=== PATIENT | female | born 1955 | race Caucasian/White ===

== ENCOUNTER 2025-03-20 18:25 | Inpatient (IN) | payer OTHER ==
[~2025-03-20] VITALS: Ht 167.6 cm; Wt 143.6 kg
[2025-03-20] VITALS (14 sets, daily range): BP systolic 128–196; BP diastolic 50–82; PULSE 57–87; RESP 9–19; TEMP 97.7–98.6; O2SAT 92–96
[~2025-03-20 18:25] MED LIST: FLUT1INH6 INH; POTA-180 PO; TRIA0.5O2 TOP
--- NOTE | 2025-03-20 18:46 | ECG ---
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
[2025-03-20] MEDS: HEPARIN SODIUM (PORCINE) 5000 UNITS/ML 1ML VIAL IV ONE ×2 (18:49→18:52)
--- NOTE | 2025-03-20 18:52 | ED.PDOC ---
HPI Comments 69 y/o obese F is BIBA for c/c chest pain. Patient reports 1x day history of substernal chest pain, that radiates to her back and bilateral shoulders. Unprovoked, atraumatic, and sudden onset, while at rest. Pain is a 10/10 in severity and squeezing and constant in quality. Endorsement of vomiting 1x after eating a meal, earlier; vomitus was stated to have been brown with food content. Significant history of OR, TAVR, hear catheterization, asthma, COPD, and furosemide use. Denies any abdominal pain, shortness of breath, palpitations, or further associated symptoms. Vital signs stable and within normal limits, with exception of SpO2 of 89% RA, respiratory rate in the 20's, blood pressure in the 140's systolically, and a blood glucose of 108. Time Seen by MD: 18:30 Reviewed Notes: Nurses Notes, Medical Imaging Technician Notes, Medications, Allergies Allergies: Coded Allergies: NO KNOWN ALLERGIES (Unverified , 03/20/25) Information Source: Patient, Emergency Med Personnel Mode of Arrival: EMS Severity: Moderate Timing: Hours Duration: Since onset Prehospital treatment: 12 Lead EKG, Accucheck, ASA (324mg), Loan Secretary, NTG (0.4mg) Location: Substernal Radiation: No Radiation Past Medical History PAST MEDICAL HISTORY: Asthma, COPD, OR Past Medical History (Other): Furesomide use Surgical History (Other): TAVR heart catherization All Other Systems: Reviewed and Negative (Comprehensive systems review obtained and negative except for what is stated in the HPI.) Physical Exam General Appearance: Moderate Distress, Obese HEENT: Normal ENT Inspection, Pharynx Normal, TMs Normal Neck: Full Range of Motion, Non-Tender, Normal, Normal Inspection Respiratory: Chest Non-Tender, Lungs Clear, No Accessory Muscle Use, No Respiratory Distress, Normal Breath Sounds Cardiovascular: No Edema, No JVD, No Murmur, No Gallop, Normal Peripheral Pulses, Regular Rate/Rhythm Breast Exam: Deferred Gastrointestinal: No Organomegaly, Non Tender, No Pulsatile Mass, Normal Bowel Sounds, Soft Genitalia: Deferred Pelvic: Deferred Rectal: Deferred Extremities: No calf tenderness, Normal capillary refill, Normal inspection, Normal range of motion, Non-tender, No pedal edema Musculoskeletal : Apperance: Normal Neurologic: Alert, docking saw operator II-XII nml as Tested, No Motor Deficits, Normal Affect, Normal Mood, No Sensory Deficits Cerebellar Function: Normal Reflexes: Normal Skin: Dry, Normal Color, Warm Lymphatic: No Adenopathy EKG EKG : Pulse Rate (adult): 51 [place]: LAD Cardiac Rhythm: Afib Block: None Hypertrophy: None ST: New, Infarct Comments leads II-IV Was a procedure done? Was a procedure done?: No CP Differential Dx Differential Diagnosis: N/A Differential Diagnosis: N/A Differential Diagnosis: Angina, Chest Wall Pain, Esophageal reflux/spasm, Gastritis, Myocardial Infarction, Pericarditis, Pulmonary Embolus X-Ray, Labs, Meds, VS Vital Signs Date Time Temp Pulse Resp B/P (MAP) Pulse Ox O2 Delivery O2 Flow Rate FiO2 03/20/25 19:01 67 12 127/77 03/20/25 18:52 51 03/20/25 18:45 67 12 96 Nasal Cannula* 2 28 03/20/25 18:45 67 12 127/77 (94) 96 03/20/25 18:30 67 03/20/25 18:30 99.2 62 20 141/7 (51) 96 99.2 03/20/25 18:29 51 Lab Test 03/20/25 18:46 Range/Units White Blood Count 7.8 4.4-10.8 10^3/uL Red Blood Count 4.73 4.0-5.20 10^6/uL Hemoglobin 13.8 12.2-16.2 g/dL Hematocrit 41.2 36.0-46.0 % Mean Corpuscular Volume 87.1 80.0-100.0 fL Mean Corpuscular Hemoglobin 29.2 28.0-32.0 pg Mean Corpuscular Hemoglobin Concent 33.5 32.0-36.0 g/dL Red Cell Distribution Width 14.7 H 11.8-14.3 % Platelet Count 205 140-450 10^3/uL Mean Platelet Volume 9.1 6.9-10.8 fL Neutrophils (%) (Auto) 61.5 37.0-80.0 % Lymphocytes (%) (Auto) 26.0 10.0-50.0 % Monocytes (%) (Auto) 9.5 0.0-12.0 % Eosinophils (%) (Auto) 2.2 0.0-7.0 % Basophils (%) (Auto) 0.8 0.0-2.0 % Neutrophils # (Auto) 4.8 1.6-8.6 10 ^3/uL Lymphocytes # (Auto) 2.0 0.4-5.4 10 ^3/uL Monocytes # (Auto) 0.7 0-1.3 10 ^3/uL Eosinophils # (Auto) 0.2 0-0.8 10 ^3/uL Basophils # (Auto) 0.1 0-0.2 10 ^3/uL Nucleated Red Blood Cells 0.1 % Prothrombin Time 10.4 9.3-11.8 sec Prothrombin Time INR 0.98 0.9-1.15 Activated Partial Thromboplast Time 26.8 24.5-34.5 SEC Sodium Level 140 136-145 mmol/L Potassium Level 4.1 3.5-5.1 mmol/L Chloride Level 105 98-107 mmol/L Carbon Dioxide Level 24 20-31 mmol/L Anion Gap 11 5-15 Blood Urea Nitrogen 20 9-23 mg/dL Creatinine 1.05 H 0.550-1.02 mg/dL Glomerular Filtration Rate Calc 58 >90 mL/min BUN/Creatinine Ratio 19.0 10.0-20.0 Serum Glucose 112 H 74-106 mg/dL Hemoglobin A1c 5.5 <5.7 % A1C Calcium Level 10.3 8.7-10.4 mg/dL Magnesium Level 1.9 1.6-2.6 mg/dL Total Bilirubin 0.3 0.2-1.0 mg/dL Aspartate Amino Transferase (AST) 28 13-40 U/L Alanine Aminotransferase (ALT) 28 7-40 U/L Alkaline Phosphatase 85 46-116 U/L Troponin I High Sensitivity 748 *H </=34 ng/L B-Type Natriuretic Peptide 52.53 0-100 pg/mL Total Protein 6.6 5.7-8.2 g/dL Albumin 4.4 3.2-4.8 g/dL Triglycerides Level 159 H < 150 mg/dL Cholesterol Level 160 < 200 mg/dL LDL Cholesterol 87 < 100 mg/dL HDL Cholesterol 52 40-59 mg/dL Thyroid Stimulating Hormone (TSH) 1.51 0.55-4.78 uIU/mL Current Medications Medications (Trade) Dose Ordered Sig/Connie Route Start Time Stop Time Status Last Admin Morphine Sulfate 2 mg ONCE ONCE IV 03/20/25 18:45 03/20/25 18:46 DC 03/20/25 19:01 Clopidogrel Bisulfate (Plavix) 300 mg ONCE ONCE PO 03/20/25 18:45 03/20/25 18:46 DC 03/20/25 19:00 Time of 1ST Reevaluation: 19:00 Reevaluation 1ST: Unchanged Patient Education/Counseling: Diagnosis, Treatment, Other (need for heart catherization and hospital admission ) Family Education/Counseling: No Family Present SEPSIS Sepsis Screen Physician Orders Chest Portable (03/20/25 18:36) Loan Secretary (03/20/25 18:36) Blood Pressure (03/20/25 18:36) Pulse Oximetry (03/20/25 18:36) Sodium Chloride Lock (Saline Lock Ns) (03/20/25 22:00) Oxygen Per Hour (03/20/25 18:36) Cardiac Rehabilitation - Outpa (03/20/25 ) Discontinue All Im Injections (03/20/25 18:37) Cl Left Heart Cath (03/20/25 18:56) Echo 2d Mode Cardiac Dop (03/20/25 19:40) Electrocardigram (03/21/25 04:00) Atorvastatin (Lipitor) (03/20/25 22:00) Aspirin Tablet (03/21/25 10:00) Vital Signs Date Time Temp Pulse Resp B/P (MAP) Pulse Ox O2 Delivery O2 Flow Rate FiO2 03/20/25 19:01 67 12 127/77 03/20/25 18:52 51 03/20/25 18:45 67 12 96 Nasal Cannula* 2 28 03/20/25 18:45 67 12 127/77 (94) 96 03/20/25 18:30 67 03/20/25 18:30 99.2 62 20 141/7 (51) 96 99.2 03/20/25 18:29 51 Laboratory Tests Test 03/20/25 18:46 White Blood Count 7.8 10^3/uL (4.4-10.8) Medications Medications Dose Ordered Sig/Connie Route Start Time Stop Time Status Last Admin Dose Admin Clopidogrel Bisulfate 300 mg ONCE ONCE PO 03/20/25 18:45 03/20/25 18:46 DC 03/20/25 19:00 Eptifibatide 20 mg STK-MED ONCE IV 03/20/25 20:05 03/20/25 20:04 DC 03/20/25 20:05 Iodixanol 32,000 mg STK-MED ONCE IV 03/20/25 19:57 03/20/25 19:56 DC 03/20/25 19:57 Iodixanol 64,000 mg STK-MED ONCE IV 03/20/25 19:03 03/20/25 19:02 DC 03/20/25 19:03 Morphine Sulfate 2 mg ONCE ONCE IV 03/20/25 18:45 03/20/25 18:46 DC 03/20/25 19:01 Departure 1 Departure Time of Disposition: 19:10 Impression: Primary Impression: Acute OR Disposition: ADMITTED INPATIENT Admit to: ICU Condition: Critical Discharged With: Self Critical Care Note Critical Care Time?: Yes (35 min-critical care time only) Critical care comment: Total critical care time: Approximately 36 minutes Due to a high probability of clinically significant, life threatening deterioration, the patient required my highest level of preparedness to inter vene emergently and I personally spent this critical care time directly and personally managing the patient. This critical care time included obtaining a history; examining the patient; pulse oximetry; ordering and review of studies; arranging urgent treatment with development of a management plan; evaluation of patient's response to treatment; frequent reassessment; and, discussions with other providers. This critical care time was performed to assess and manage the high probability of imminent, life-threatening deterioration that could result in multi-organ failure. It was exclusive of separately billable procedures and treating other patients. Stability Stability form required: No Heart Score Heart Score: Heart Score Response (Comments) Value History Highly Suspicious [address]-Deviation 2 Age >65 2 Risk Factors >3 or Hx ASHD 2 Troponin >3 x's Normal limit 2 Total 10 I personally scribed for LENORE BARONE MD ([email or web address]) on 03/20/25 at 18:52. Electronically submitted by Ty Germain ([email or web address]). LENORE BARONE MD Mar 20, 2025 18:52
--- NOTE | 2025-03-20 18:57 | DVHINCON2 ---
Date Seen: Mar 20, [address] Kaiser Reason for Consultation Acute STEMI History of Present Illness 69-year-old female with past medical history of TAVR, ?CAD, COPD, emphysema, chronic kidney disease, and obesity, presents to the emergency department via EMS for evaluation of chest pain. The patient reports that the chest pain began yesterday but acutely worsened over the past hour prior to arrival. She describes the pain as starting in her back and radiating to the anterior chest with a pressure-like quality, later progressing to bilateral shoulder discomfort, and accompanied by diaphoresis. She took an aspirin and use two puffs of albuterol with only mild symptom relief before calling 911. A 12-lead ECG obtained in the ED reveals an acute ST-elevation myocardial infarction. 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 Past Medical History As stated in HPI Past Surgical History TAVR Family History Reviewed, non-contributory to the management of this case. 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 Allergies: Coded Allergies: NO KNOWN ALLERGIES (Unverified , 03/20/25) Current Medications Current Medications Medications (Trade) Dose Ordered Sig/Connie Route PRN Reason Start Time Stop Time Status Last Admin Sodium Chloride (Saline Lock Ns) 10 ml Q8HR IV 03/20/25 22:00 UNV Review of Systems Constitutional: No symptom reported Ears, Nose, & Throat: No symptom reported Eyes: No symptom reported Neurological: No symptoms reported Pulmonary/Respiratory: No symptom reported Cardiovascular: Chest pain radiating to her shoulders, pressure-like in nature. Denies palpitation or syncope Gastrointestinal: No symptom reported Genitourinary: No symptom reported Musculoskeletal: No symptom reported Skin: No symptom reported Psychiatric: No symptom reported Endocrine: No symptom reported Hematologic/Lymphatic: No symptom reported Vital Signs Vital Signs Date Time Temp Pulse Resp B/P (MAP) Pulse Ox O2 Delivery O2 Flow Rate FiO2 03/20/25 18:30 99.2 62 20 141/7 (88) 96 99.2 Physical Exam INITIAL VITAL SIGNS: Reviewed by me GENERAL: Alert and interactive. No acute distress. HEAD: Head is normocephalic and atraumatic. EYES: EOMI, PERRL. No scleral icterus. No conjunctival injection. ENT: Moist mucous membranes. NECK: Supple, No masses, Full range of motion. RESPIRATORY: No tachypnea. Clear breath sounds bilaterally. No wheezing, rales, rhonchi. CV: STEMI, anterior infarct. GI/: Active bowel sounds, soft, nondistended, nontender. No guarding. No rebound. No masses. No CVA tenderness. INTEGUMENTARY: Warm and dry. No obvious rashes. NEUROLOGIC: Alert and oriented. Face is symmetric. Speech is normal. Moves all extremities equally. Labs/Diagnostic Data PROCEDURE(s): CXRP - CHEST PORTABLE REASON: STEMI ORDER NUMBER(s): [id number], ACCESSION NUMBER(s): [id number] CHEST RADIOGRAPH Indication: STEMI Technique: Single frontal view of the chest was obtained Comparison: None FINDINGS: Lines and Tubes: None Lungs: No focal consolidation. Interstitial prominence. Pleura: No effusion. No pneumothorax. Cardiomediastinal contours: Borderline cardiomegaly. Bones: No acute osseous abnormality. IMPRESSION: Mild pulmonary vascular congestion. Assessment Acute STEMI Hx of TAVR COPD/emphysema Pulmonary vascular congestion CKD Morbid obesity Plan/Recommendation (Dr. Jason ): The patient is presenting with acute ST-elevation WA and requires emergent activation of cardiac catheterization lab for urgent coronary angiogram and possible percutaneous coronary intervention. She has already taken aspirin, loaded with P2Y12 inhibitor Plavix ,IV heparin bolus and IVF. A high intensity statin will be started as part of secondary prevention. Supplemental oxygen is administered. Nitroglycerin to be used for chest pain if hemodynamically stable, and morphine reserve for pain refractory to nitrates. Cardiac monitoring will continues telemetry is indicated along with serial troponin and repeat ECGs. Basic lab ordered including BNP. Renal function will be monitored closely given her history of CKD and contrast using catheterization will be minimized or adjusted as needed. Post intervention, a transthoracic echocardiogram will be obtained to assess wall motion abnormalities and prosthetic valve function. This medical document was created using an electronic medical record system with voice recognition software and computerized dictation system. Although this document has been carefully reviewed, there might still be some phonetic and typographical errors. Occasional wrong-word or ``sound-alike substitutions may have occurred due to the inherent limitations of voice recognition software. These areas are purely typographical due to imperfections of the software programs and do not reflect any compromise in the patient's medical care. Please read the chart carefully and recognize, using context, where these substitutions have occurred. Plan discussed with: Patient Plan discussed with: Patient NYHA Physical activity limitations: NA Date of Service: Mar 20, 2025 Billing Provider: MARGARET JASON Sr., MD Cardiology Common Codes: CONSULT ONLY Cardiology Consultation Codes: 35049-QTABWINQK CONSULT <60MIN [facility] C[facility] TRAINER Mar 20, 2025 18:57
[2025-03-20] MEDS: CLOPIDOGREL BISULFATE 75 MG TAB PO ONE (19:00)
[2025-03-20] MEDS: MORPHINE SULFATE INJ 2 MG/ml SYRG IV ONE (19:01)
[2025-03-20] MEDS: VERAPAMIL 2.5MG/ML INJ 2ML VIAL IV ONE (19:02)
[2025-03-20] MEDS: ANGIOMAX 250 MG VIAL IV ONE ×2 (19:02→19:54)
[2025-03-20] MEDS: SODIUM CHL 0.9% 50 ML ONE ×2 (19:03→19:55)
[2025-03-20] MEDS: IODIXANOL 320MG/ML 100ML BTL IV ONE ×2 (19:03→19:57)
[2025-03-20] MEDS: fentaNYL CITRATE 100 MCG/2 ML VL ONE ×2 (19:03→20:06)
[2025-03-20] MEDS: MIDAZOLAM HCL 2MG/2ML 2ml VIAL (1mg/ml) ONE ×3 (19:03→20:19)
[2025-03-20] MEDS: LIDOCAINE 2%HCL (LOCAL ANESTH.) INJ 20ML MDV ONE (19:04)
--- NOTE | 2025-03-20 19:04 | DVH ---
CHEST RADIOGRAPH Indication: STEMI Technique: Single frontal view of the chest was obtained Comparison: None FINDINGS: Lines and Tubes: None Lungs: No focal consolidation. Interstitial prominence. Pleura: No effusion. No pneumothorax. Cardiomediastinal contours: Borderline cardiomegaly. Bones: No acute osseous abnormality. IMPRESSION: Mild pulmonary vascular congestion.
[2025-03-20 19:17] LABS: Hematocrit 41.2 % (36.0-46.0); Hemoglobin 13.8 g/dL (12.2-16.2); Mean Corpuscular Hemoglobin 29.2 pg (28.0-32.0); Mean Corpuscular Volume 87.1 fL (80.0-100.0); Nucleated Red Blood Cells % 0.1 %
[2025-03-20 19:26] LABS: Alanine Aminotransferase 28 U/L (7-40); Albumin 4.4 g/dL (3.2-4.8); Alkaline Phosphatase 85 U/L (46-116); Anion Gap 11 (5-15); BUN/Creatinine Ratio 19.0 (10.0-20.0); Blood Urea Nitrogen 20 mg/dL (9-23); Calcium 10.3 mg/dL (8.7-10.4); Carbon Dioxide 24 mmol/L (20-31); Chloride 105 mmol/L (98-107); Magnesium 1.9 mg/dL (1.6-2.6); Potassium 4.1 mmol/L (3.5-5.1); Sodium 140 mmol/L (136-145); Total Protein 6.6 g/dL (5.7-8.2)
[2025-03-20] MEDS: HEPARIN SODIUM (PORCINE) 5000 UNITS/ML 1ML VIAL ONE (19:31)
[2025-03-20 19:38] LABS: Bilirubin, Total 0.3 mg/dL (0.2-1.0); Glucose 112 mg/dL (74-106); INR 0.98 (0.9-1.15); Partial Thromboplastin Time 26.8 SEC (24.5-34.5); Prothrombin Time 10.4 sec (9.3-11.8)
[2025-03-20] MEDS: EPTIFIBATIDE DRIP(0.75MG/ML) 100 ML IV ONE (20:05)
[2025-03-20] MEDS: EPTIFIBATIDE INJ (2MG/ML) 10ML VIAL IV ONE (20:05)
[2025-03-20 20:06] LABS: Cholesterol 160 mg/dL (< 200); HDL Cholesterol 52 mg/dL (40-59)
[2025-03-20 20:17] LABS: Triglycerides 159 mg/dL (< 150)
[2025-03-20] MEDS ORDERED: NITROGLYCERIN 0.4 MG SL TAB SL PRN (20:30)
--- NOTE | 2025-03-20 20:48 | DVHOP2 ---
Operative Report - 2 Report Details Date: 03/20/25 Preop Diagnosis: Coronary artery disease, acute myocardial infarction (STEMI) Postop Diagnosis: Successful PTCA , stenting and thrombectomy of the left anterior descending coronary artery. Administration of Integrilin. Surgeon: Margaret Jason MD Anesthesiologist: Conscious sedation Anesthesia: Mac, Local Implant: [employer] [place] drug-eluting stent Consent: The patient was informed of the risks and benefits of the procedure. These include but are not limited to complications of anesthesia, postoperative infection, incomplete relief of symptoms, recurrence of symptoms, damage to blood vessels, nerves and tendons, deep venous thrombosis, pulmonary embolism and possible need for repeat surgery in the future. Complications: No complications Findings: Occluded left anterior descending coronary artery. Diminished left ventricular ejection fraction. Elevated left ventricular end-diastolic pressure. Indications for Surgery: Acute myocardial infarction Name of Procedure Performed Left heart catheterization. Bilateral cine coronary angiography left ventric ulography. PTCA and stenting of the left anterior descending coronary artery. Thrombectomy with penumbra device of the left anterior descending coronary artery. Administration of Integrilin. Procedure Details Procedure Details: Prior local anesthesia with 2% lidocaine to the right wrist and full informed consent obtained under fluoroscopic and ultrasound guidance we obtained access into the radial artery subsequent to which we placed a six Dutch sheath. A 3.0 EBU guiding catheter was placed subsequent to which we obtained access through the struts of a TAVR valve into the left main. We identified an occluded LAD. We proceeded to angioplasty as will be delineated. We used a JR4 for evaluation of the right coronary and the same 3-0 EBU guide was used for ventriculography. There were no complications. Hemodynamics: Aortic blood pressure was 130 over 90. End-diastolic pressure was 33. There was no gradient across the aortic valve on pullback Coronary anatomy the RCA is a medium vessel is normal in its proximal mid and distal segments. PDA and posterolateral branches are normal. Left main is medium caliber and normal. Left anterior descending is a medium to large vessel it is 100% occluded at its mid section the circumflex is a large vessel with two obtuse marginals free of significant disease Ventriculography in the IVNES projection shows an EF of approximately 25% with anterior apical and inferior apical akinesis. The ventricle is enlarged. Subsequent placing the 3.0 EBU guide we placed a Specter wire across the area of stenosis and performed angioplasty with a 2-0 balloon. There was minimal flow given thrombus present. We then placed a CAT three penumbra aspiration catheter and performed four runs extracting notable amount of thrombus. FILIPPO grade 1 was achieved subsequent to the penumbra placed into the apical segment of the left anterior descending coronary artery. We injected contrast through the aspiration port to evaluate the patency of the distal LAD. There was no thrombus present subsequent to the 4th aspiration. A proximally 600 mcg of intracoronary nitroglycerin were administered throughout the procedure. The patient tolerated the procedure well. Integrilin was instituted given a persistent slow flow. We then placed a 3-0 by 18 mm stent into the mid LAD at a proximally 13 atmospheres. There was FILIPPO two flow of the end of the procedure with intracoronary nitroglycerin being administered and swell as Integrilin. Impression: Elevated left ventricular end-diastolic pressure was with decreased left ventricular ejection fraction. Left anterior descending coronary artery lesion. With aperture of acute occlusion of left anterior descending coronary artery with a drug-eluting stent and administration of GP IIb IIIa inhibitor. Recommendations: Continuation of the Angiomax we will continue for the next hours well. Dual antiplatelet therapy and risk factor modification. Condition Guarded Disposition Still a Patient Date of Service: Mar 20, 2025 Billing Provider: MARGARET JASON Sr., MD Cardiology Common Codes: 58232-CSQAJXH INP/OBS CARE (High) Cardiology Procedure Codes: 18730 -PTCA W/STENT PLACEMENT, 64212-QBBE FOR STEMI W/STENT, 63220-LHRK HEART CATH W/INTRA INJ (Thrombectomy with penumbra a spiration catheter) MARGARET JASON Sr., MD Mar 20, 2025 20:48
[2025-03-20] MEDS: FUROSEMIDE 20 MG/2 ML VIAL ONE (20:50)
[2025-03-20] MEDS: FUROSEMIDE 40 MG/4 ML VIAL IV ONE (21:24)
[2025-03-20] MEDS: MORPHINE SULFATE INJ 2 MG/ml SYRG IV PRN (21:46)
[2025-03-20] MEDS: CARVEDILOL 3.125 MG TAB PO SCH (22:05)
[2025-03-20] MEDS: ATORVASTATIN 20 MG TAB PO SCH (22:05)
[2025-03-20] MEDS: ZOLPIDEM TARTRATE 5 MG TAB PO ONE (22:05)
[2025-03-20] MEDS: SODIUM CHLOR 0.9% PF (SALINE LOCK) 10ML VIAL/SYR IV SCH (22:08)
[2025-03-20] MEDS: SACUBITRIL-VALSARTAN 24mg/26mg TAB PO SCH (22:47)
[2025-03-20] MEDS: HYDROmorphone HCL 2 MG/ML VL/or syr IV ONE (22:47)
[2025-03-21] VITALS (105 sets, daily range): BP systolic 119–181; BP diastolic 35–90; PULSE 62–164; RESP 13–34; TEMP 98.3–98.9; O2SAT 91–97
[2025-03-21] MEDS: hydrALAZINE HCL 20 MG/ML VL IV PRN (00:30)
[2025-03-21] MEDS: EPTIFIBATIDE DRIP(0.75MG/ML) 100 ML IV SCH (00:30)
[2025-03-21] MEDS: ATORVASTATIN 20 MG TAB PO ONE (01:20)
[2025-03-21 02:04] LABS: Hematocrit 38.5 % (36.0-46.0); Hemoglobin 13.2 g/dL (12.2-16.2); Mean Corpuscular Hemoglobin 29.7 pg (28.0-32.0); Mean Corpuscular Volume 86.6 fL (80.0-100.0); Nucleated Red Blood Cells % 0.0 %
[2025-03-21 02:26] LABS: Alanine Aminotransferase 53 U/L (7-40); Albumin 4.0 g/dL (3.2-4.8); Alkaline Phosphatase 80 U/L (46-116); Anion Gap 9 (5-15); BUN/Creatinine Ratio 18.4 (10.0-20.0); Bilirubin, Total 0.6 mg/dL (0.2-1.0); Blood Urea Nitrogen 16 mg/dL (9-23); Calcium 9.2 mg/dL (8.7-10.4); Carbon Dioxide 27 mmol/L (20-31); Chloride 102 mmol/L (98-107); Glucose 133 mg/dL (74-106); Potassium 4.1 mmol/L (3.5-5.1); Sodium 138 mmol/L (136-145); Total Protein 6.5 g/dL (5.7-8.2)
[2025-03-21] MEDS: ASPirin-EC 81 mg tab PO SCH (08:36)
[2025-03-21] MEDS: CLOPIDOGREL BISULFATE 75 MG TAB PO SCH (08:37)
[2025-03-21] MEDS: FUROSEMIDE 40 MG TAB PO SCH (08:37)
[2025-03-21] MEDS: hydrALAZINE HCL 20 MG/ML VL ONE (08:40)
[2025-03-21] MEDS: EPTIFIBATIDE DRIP(0.75MG/ML) 100 ML IV ONE ×2 (08:40)
[2025-03-21 09:45] LABS: Hematocrit 39.6 % (36.0-46.0); Hemoglobin 13.1 g/dL (12.2-16.2); Mean Corpuscular Hemoglobin 28.7 pg (28.0-32.0); Mean Corpuscular Volume 87.1 fL (80.0-100.0); Nucleated Red Blood Cells % 0.1 %
[2025-03-21 09:55] LABS: Albumin 4.2 g/dL (3.2-4.8); Alkaline Phosphatase 82 U/L (46-116); Anion Gap 9 (5-15); BUN/Creatinine Ratio 19.2 (10.0-20.0); Blood Urea Nitrogen 15 mg/dL (9-23); Calcium 9.9 mg/dL (8.7-10.4); Carbon Dioxide 27 mmol/L (20-31); Chloride 101 mmol/L (98-107); Potassium 4.0 mmol/L (3.5-5.1); Sodium 137 mmol/L (136-145); Total Protein 6.5 g/dL (5.7-8.2)
[2025-03-21 09:56] LABS: Bilirubin, Total 0.7 mg/dL (0.2-1.0)
[2025-03-21 10:05] LABS: Alanine Aminotransferase 67 U/L (7-40); Glucose 131 mg/dL (74-106)
--- NOTE | 2025-03-21 10:41 | ECG ---
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
--- NOTE | 2025-03-21 13:21 | DVHHP2 ---
Review of Systems Allergies: Coded Allergies: NO KNOWN ALLERGIES (Unverified , 03/20/25) Medications Current Medications Medications Dose Ordered Sig/Connie Route Start Time Stop Time Status Last Admin Dose Admin Sodium Chloride 10 ml Q8HR IV 03/20/25 22:00 03/21/25 10:10 10 ML Atorvastatin Calcium 80 mg HS PO 03/20/25 22:00 03/20/25 22:05 80 MG Aspirin 81 mg DAILY PO 03/21/25 10:00 03/21/25 08:36 81 MG Nitroglycerin 0.4 mg Q5MINP PRN SL 03/20/25 20:30 Morphine Sulfate 2 mg Q30M PRN IV 03/20/25 20:30 03/21/25 11:56 2 MG Furosemide 40 mg DAILY PO 03/21/25 10:00 03/21/25 08:37 40 MG Carvedilol 3.125 mg BID PO 03/20/25 22:00 03/21/25 10:09 3.125 MG Sacubitril/ Valsartan 1 tab BID PO 03/20/25 22:00 03/21/25 08:36 1 TAB Aspirin 81 mg DAILY PO 03/21/25 10:00 03/21/25 08:36 81 MG Clopidogrel Bisulfate 75 mg DAILY PO 03/21/25 10:00 03/21/25 08:37 75 MG Hydralazine HCl 10 mg Q6HPRN PRN IV 03/21/25 00:30 03/21/25 00:30 10 MG Clonidine HCl 0.2 mg Q2HR PRN PO 03/21/25 00:30 Eptifibatide 100 ml @ 20 mls/hr Q5H IV 03/21/25 00:30 03/21/25 14:30 03/21/25 10:09 20 MLS/HR Magnesium Sulfate/ Dextrose 100 ml @ 100 mls/hr Q1HR IV 03/21/25 14:00 03/21/25 15:59 UNV Exam Vital Signs Vital Signs Date Time Temp Pulse Resp B/P (MAP) Pulse Ox O2 Delivery O2 Flow Rate FiO2 03/21/25 12:01 98.9 66 15 164/69 (100) 95 98.9 03/21/25 12:00 Nasal Cannula* 2 28 Labs/Xrays Labs Test 03/21/25 12:49 03/21/25 09:10 7/28/25 01:35 03/20/25 18:46 Range/Units White Blood Count 11.6 H 4.4-10.8 10^3/uL Red Blood Count 4.55 4.0-5.20 10^6/uL Hemoglobin 13.1 12.2-16.2 g/dL Hematocrit 39.6 36.0-46.0 % Mean Corpuscular Volume 87.1 80.0-100.0 fL Mean Corpuscular Hemoglobin 28.7 28.0-32.0 pg Mean Corpuscular Hemoglobin Concent 33.0 32.0-36.0 g/dL Red Cell Distribution Width 14.6 H 11.8-14.3 % Platelet Count 204 140-450 10^3/uL Mean Platelet Volume 9.1 6.9-10.8 fL Neutrophils (%) (Auto) 88.7 H 37.0-80.0 % Lymphocytes (%) (Auto) 5.7 L 10.0-50.0 % Monocytes (%) (Auto) 5.5 0.0-12.0 % Eosinophils (%) (Auto) 0.0 0.0-7.0 % Basophils (%) (Auto) 0.1 0.0-2.0 % Neutrophils # (Auto) 10.3 H 1.6-8.6 10 ^3/uL Lymphocytes # (Auto) 0.7 0.4-5.4 10 ^3/uL Monocytes # (Auto) 0.6 0-1.3 10 ^3/uL Eosinophils # (Auto) 0 0-0.8 10 ^3/uL Basophils # (Auto) 0 0-0.2 10 ^3/uL Nucleated Red Blood Cells 0.1 % Sodium Level 137 136-145 mmol/L Potassium Level 4.0 3.5-5.1 mmol/L Chloride Level 101 98-107 mmol/L Carbon Dioxide Level 27 20-31 mmol/L Anion Gap 9 5-15 Blood Urea Nitrogen 15 9-23 mg/dL Creatinine 0.78 0.550-1.02 mg/dL Glomerular Filtration Rate Calc 82 >90 mL/min BUN/Creatinine Ratio 19.2 10.0-20.0 Serum Glucose 131 H 74-106 mg/dL Calcium Level 9.9 8.7-10.4 mg/dL Magnesium Level 1.9 1.6-2.6 mg/dL Total Bilirubin 0.7 0.2-1.0 mg/dL Aspartate Amino Transferase (AST) 386 H 13-40 U/L Alanine Aminotransferase (ALT) 67 H 7-40 U/L Alkaline Phosphatase 82 46-116 U/L Total Protein 6.5 5.7-8.2 g/dL Albumin 4.2 3.2-4.8 g/dL B-Type Natriuretic Peptide 93.82 0-100 pg/mL Prothrombin Time 10.4 9.3-11.8 sec Prothrombin Time INR 0.98 0.9-1.15 Activated Partial Thromboplast Time 26.8 24.5-34.5 SEC Hemoglobin A1c 5.5 <5.7 % A1C Triglycerides Level 159 H < 150 mg/dL Cholesterol Level 160 < 200 mg/dL LDL Cholesterol 87 < 100 mg/dL HDL Cholesterol 52 40-59 mg/dL Thyroid Stimulating Hormone (TSH) 1.51 0.55-4.78 uIU/mL SEPSIS Sepsis Screen Date sepsis recognized/suspect: Mar 20, 2025 Time Sepsis recognized/suspect: 1844 Recent Procedure: No On Antibiotic Therapy: No Respiratory Rate >20: No Heart Rate >90: No Temp<36 C (96.8 F) or >38.3 C: No SBP <90 or MAP <65 mmHG: No New Acute Mental Status Change: No Is the patient on CPAP, BIPAP,: No Physician Orders * Wound Consult (03/21/25 06:45) Magnesium Sulfate 1gm/100ml (03/21/25 14:00) Urinalysis (03/21/25 13:16) Complete Blood Count (03/22/25 06:00) Comprehensive Metabolic Panel (03/22/25 06:00) Magnesium (03/22/25 05:00) Chest Portable (03/22/25 06:00) Vital Signs Date Time Temp Pulse Resp B/P (MAP) Pulse Ox O2 Delivery O2 Flow Rate FiO2 03/21/25 12:01 98.9 66 15 164/69 (100) 95 98.9 03/21/25 12:00 18 96 Nasal Cannula* 2 28 03/21/25 12:00 80 03/21/25 12:00 65 03/21/25 11:56 67 16 162/69 03/21/25 11:46 66 18 162/69 (100) 96 7/28/25 11:31 65 16 154/66 (95) 96 03/21/25 11:22 67 166/63 03/21/25 11:16 65 16 166/63 (97) 96 03/21/25 11:01 71 14 148/68 (94) 97 03/21/25 10:46 66 16 156/74 (101) 96 03/21/25 10:31 68 13 159/70 (99) 95 03/21/25 10:16 65 19 156/78 (104) 95 03/21/25 10:09 65 146/64 03/21/25 10:01 67 34 146/64 (91) 95 03/21/25 10:00 65 03/21/25 10:00 18 95 Nasal Cannula* 2 28 03/21/25 09:46 76 13 153/67 (95) 96 03/21/25 09:31 62 15 150/64 (92) 94 03/21/25 09:16 63 16 151/61 (91) 94 03/21/25 09:01 63 17 152/70 (97) 94 03/21/25 08:46 75 15 162/70 (100) 95 03/21/25 08:37 152/64 03/21/25 08:31 63 16 152/64 (93) 95 03/21/25 08:16 66 18 146/63 (90) 94 03/21/25 08:01 98.5 65 17 154/68 (96) 94 98.5 03/21/25 08:00 62 16 95 Nasal Cannula* 2 28 03/21/25 08:00 16 95 Nasal Cannula* 2 28 03/21/25 08:00 68 03/21/25 07:46 64 16 144/69 (94) 94 03/21/25 07:31 67 17 151/57 (88) 95 03/21/25 07:16 127 16 142/66 (91) 94 03/21/25 07:01 69 17 137/70 (92) 94 03/21/25 06:45 85 19 143/64 (90) 94 03/21/25 06:30 82 19 137/66 (89) 94 03/21/25 06:15 71 17 142/67 (92) 93 03/21/25 06:00 78 03/21/25 06:00 16 96 Nasal Cannula* 2 28 03/21/25 06:00 80 15 134/60 (84) 94 03/21/25 05:45 77 15 143/84 03/21/25 05:45 164 20 139/56 (83) 91 03/21/25 05:30 71 17 155/52 (86) 94 Laboratory Tests Test 03/21/25 01:35 03/21/25 09:10 White Blood Count 9.3 10^3/uL (4.4-10.8) 11.6 10^3/uL (4.4-10.8) H Medications Medications Dose Ordered Sig/Connie Route Start Time Stop Time Status Last Admin Dose Admin Aspirin 81 mg DAILY PO 03/21/25 10:00 03/21/25 08:36 81 MG Aspirin 81 mg DAILY PO 03/21/25 10:00 03/21/25 08:36 81 MG Clopidogrel Bisulfate 75 mg DAILY PO 03/21/25 10:00 03/21/25 08:37 75 MG Furosemide 40 mg DAILY PO 03/21/25 10:00 03/21/25 08:37 40 MG Assessment/Plan Assessment/Plan see dictated note Plan discussed with: Patient My Orders Orders - RANDALL VIDAL MD Procedure Category Date Status Time Magnesium Sulfate PHA 03/21/25 Logged 1gm/100ml 14:00 Urinalysis LAB 03/21/25 Uncollected 13:16 Complete Blood Count LAB 03/22/25 Verified 06:00 Comprehensive LAB 03/22/25 Verified Metabolic Panel 06:00 Magnesium LAB 03/22/25 Verified 05:00 Chest Portable XY 03/22/25 Verified 06:00 Date of Service: Mar 21, 2025 Billing Provider: RANDALL VIDAL MD Common Visit Codes: [id number] CARE 30-74 MIN RANDALL VIDAL MD Mar 21, 2025 13:21
--- NOTE | 2025-03-21 13:35 | DVHHP ---
HISTORY OF PRESENT ILLNESS: The patient is a 69-year-old lady who is admitted with a history of increasing chest pain and shortness of breath and lower extremity swelling. The patient also was diaphoretic. The patient subsequently was diagnosed to have an acute myocardial infarction. At this time, the patient complains of some soreness. No history of fever. No history of cough. REVIEW OF SYSTEMS: Otherwise currently negative. PAST MEDICAL HISTORY: Significant for COPD, chronic respiratory failure, previous TAVR and chronic kidney disease. MEDICATIONS: None. ALLERGIES: No known drug allergies. SOCIAL HISTORY: Denies smoking. Lives at home with her . FAMILY HISTORY: Negative. PHYSICAL EXAMINATION: GENERAL: The patient is awake and alert. VITAL SIGNS: Temperature of 98.9, pulse of 80 per minute, blood pressure 164/69. SHEENT: Unremarkable. NECK: There is no JVD. There is pedal edema 1+. LUNGS: Diminished air entry bilaterally. CARDIOVASCULAR: S1 and S2 is regular without murmurs. ABDOMEN: Soft. There is no organomegaly. NEUROLOGIC: Nonfocal. MUSCULOSKELETAL: Normal. ASSESSMENT AND PLAN: * Acute myocardial infarction, status post coronary angiography with stenting of the left anterior descending artery. * Hvipc-sw-xqbuwce systolic heart failure for which the patient will be placed on Lasix as well as Entresto. * Status post run of ventricular tachycardia. The patient will be placed on magnesium. * Chronic obstructive pulmonary disease. * Acute on chronic respiratory failure. * Morbid obesity. * Transaminitis. * History of transcatheter aortic valve replacement. Critical care time spent was 42 minutes. MD DEVON Ricks/EKT TID: [id number] RECEIPT: [id number]
[2025-03-21] MEDS: MAGNESIUM SULFATE 1GM/100ML 100 ML IV SCH (14:05)
--- NOTE | 2025-03-21 14:33 | DVHSR ---
APPROVED REPORT EXAM: Two-dimensional and M-mode echocardiogram with Doppler and color Doppler. Blood Pressure: 143/64 mmHg INDICATION Acute Stemi Surgery/Intervention Valve Replacement: Type: TAVR RISK FACTORS Obesity: Height: 5'6", Weight: 317 DIMENSIONS LVDd5.6 (3.8-5.7cm)LA (2D)5.0 (1.9-4.0cm)Aortic Root (2.0-3.7cm) LVDs3.7 (2.5-4.0cm)LA (MM) (1.9-4.0cm)Aortic Cusp Exc (1.5-2.0cm) EF (%) 61.0 (55-70%)Rt. Atrium3.8 (1.9-4.0cm)Asc. Aorta3.7 cm IVSd1.0 (0.7-1.1cm)RV (D)3.3 (1.8-2.4cm) PWd1.4 (0.7-1.1cm) Mitral Valve MitralMitral Stenosis E wave0.81m/sMV Mean GR.mmHg A wave1.21m/sMV Peak GR.mmHg E/A ratio0.72D MVAcm2 DECEL [id number] 1/2 Timems Aortic Valve Aortic ValveAortic Stenosis V11.20m/Dia Mean GR.14mmHg V22.70m/Dia Peak GR.29mmHg LVOT Diameter2.0 (1.8-2.4cm)Doppler AVA1.40cm2 Tricuspid Valve TR Velocity2.52m/s [id number] Other Information Quality : Technically LimitedRhythm : Technically limited study due to body habitus. Conclusion lvef 40% apex is akinetic dilated LV s/p tavr, mean gradient across 14 mmhg, clinical correlate, no sig AI noted left atrium enlarged marked mild mitral regurg
--- NOTE | 2025-03-21 17:13 | DVHPN2 ---
Consult Progress Note Subjective Other Systems: In normal sinus rhythm with frequent episodes of ventricular tachycardia on monitor Objective vital signs Vital Sign Date Time Temp Pulse Resp B/P (MAP) Pulse Ox O2 Delivery O2 Flow Rate FiO2 03/21/25 16:38 69 20 141/66 03/21/25 16:01 98.3 95 98.3 03/21/25 16:00 Nasal Cannula* 2 28 Total Intake and Output 03/20/25 03/20/25 03/21/25 15:00 23:00 07:00 Intake Total 100 ml 590 ml Output Total 3665 ml Balance 100 ml -3075 ml medications Current Medications Medications Dose Ordered Sig/Connie Route Start Time Stop Time Status Last Admin Dose Admin Sodium Chloride 10 ml Q8HR IV 03/20/25 22:00 03/21/25 10:10 10 ML Atorvastatin Calcium 80 mg HS PO 03/20/25 22:00 03/20/25 22:05 80 MG Aspirin 81 mg DAILY PO 03/21/25 10:00 03/21/25 08:36 81 MG Nitroglycerin 0.4 mg Q5MINP PRN SL 03/20/25 20:30 Morphine Sulfate 2 mg Q30M PRN IV 03/20/25 20:30 03/21/25 16:38 2 MG Furosemide 40 mg DAILY PO 03/21/25 10:00 03/21/25 08:37 40 MG Carvedilol 3.125 mg BID PO 03/20/25 22:00 03/21/25 10:09 3.125 MG Sacubitril/ Valsartan 1 tab BID PO 03/20/25 22:00 03/21/25 08:36 1 TAB Aspirin 81 mg DAILY PO 03/21/25 10:00 03/21/25 08:36 81 MG Clopidogrel Bisulfate 75 mg DAILY PO 03/21/25 10:00 03/21/25 08:37 75 MG Hydralazine HCl 10 mg Q6HPRN PRN IV 03/21/25 00:30 03/21/25 00:30 10 MG Clonidine HCl 0.2 mg Q2HR PRN PO 03/21/25 00:30 Examination: GENERAL:Normal, LUNGS:Normal, CVS:Abnormal (Episodes of ventricular tachycardia), NEURO:Normal laboratory and microbiology Laboratory Tests 03/21/25 09:10 Test 03/21/25 09:10 Range/Units Serum Glucose 131 H 74-106 mg/dL Problem List/Assessment/Plan Problem List/Assessment/Plan ST-elevation myocardial infarction status post PTCA X 1 JENNIFER to LAD Acute on chronic decompensated HFrEF, NYHA class III (EF 25% on ventriculography) Ventricular tachycardia Aortic valve stenosis status post TAVR Hypertriglyceridemia COPD Emphysema Transaminitis Obesity Continue with the following plan/recommendations (Dr. Jason): Case discussed with . The patient came in with ST-elevation myocardial infarction in which she underwent a coronary angiogram with left heart catheterization in which there was a successful PTCA, stenting and thrombectomy of the left anterior descending artery. Continue with dual antiplatelet therapy and lipid-lowering agent. Initiate guideline directed medical therapy for CHF as tolerated. Increase Entresto dose for tighter BP control. Add MRA (spironolactone) with stable potassium. The patient was given IV magnesium for ventricular tachycardia. We will initiate a social service consult for initiation of LifeVest prior to discharge. Continue with close cardiac surveillance. Thank you for allowing us to care for this patient. Please call with any questions or concerns. Critical care time spent: 44 minutes. This medical document was created using an electronic medical record system with voice recognition software and computerized dictation system. Although this document has been carefully reviewed, there might still be some phonetic and typographical errors. Occasional wrong-word or ``sound-alike substitutions may have occurred due to the inherent limitations of voice recognition software. These areas are purely typographical due to imperfections of the software programs and do not reflect any compromise in the patient's medical care. Please read the chart carefully and recognize, using context, where these substitutions have occurred. Plan discussed with: Patient Date of Service: Mar 21, 2025 Billing Provider: SHAKILA CELIS Common Visit Codes: [id number] CARE 30-74 MIN SHAKILA CELIS Mar 21, 2025 17:13
[2025-03-21 21:33] LABS: Urine Protein, UAD TRACE (Negative)
[2025-03-21] MEDS: SACUBITRIL-VALSARTAN 24mg/26mg TAB PO SCH (22:18)
[2025-03-22] VITALS (93 sets, daily range): BP systolic 105–174; BP diastolic 38–96; PULSE 63–95; RESP 10–37; TEMP 97.9–98.7; O2SAT 89–98
[2025-03-22 03:45] LABS: Hematocrit 37.3 % (36.0-46.0); Hemoglobin 12.7 g/dL (12.2-16.2); Mean Corpuscular Hemoglobin 29.2 pg (28.0-32.0); Mean Corpuscular Volume 86.0 fL (80.0-100.0); Nucleated Red Blood Cells % 0.0 %
[2025-03-22 04:01] LABS: Albumin 3.6 g/dL (3.2-4.8); Alkaline Phosphatase 75 U/L (46-116); Anion Gap 7 (5-15); BUN/Creatinine Ratio 18.4 (10.0-20.0); Blood Urea Nitrogen 14 mg/dL (9-23); Calcium 8.7 mg/dL (8.7-10.4); Carbon Dioxide 28 mmol/L (20-31); Chloride 100 mmol/L (98-107); Magnesium 2.1 mg/dL (1.6-2.6); Potassium 4.0 mmol/L (3.5-5.1); Total Protein 5.8 g/dL (5.7-8.2)
[2025-03-22 04:02] LABS: Bilirubin, Total 0.6 mg/dL (0.2-1.0)
[2025-03-22 04:19] LABS: Alanine Aminotransferase 58 U/L (7-40); Glucose 129 mg/dL (74-106); Sodium 135 mmol/L (136-145)
--- NOTE | 2025-03-22 05:33 | DVH ---
CHEST RADIOGRAPH Indication: chf Technique: Single frontal view of the chest was obtained COMPARISON: XY CHEST PORTABLE on DOS: 03/20/25 FINDINGS: Lines and Tubes: None Lungs: Mild congestion Pleura: No effusion. No pneumothorax. Cardiomediastinal contours: Unremarkable Bones: Unremarkable IMPRESSION: Mild congestion, unchanged
[2025-03-22] MEDS: EMPAGLIFLOZIN 10 MG TAB PO SCH (08:24)
[2025-03-22] MEDS: ACETAMINOPHEN 500 MG TAB or CAP PO PRN (10:12)
--- NOTE | 2025-03-22 10:29 | ECG ---
[facility] Test Date: 2025-03-21 Test Time: 22:34:07 Pat Name: RENETTA COLON Department: ICU Room: [address] [place] [address] A Gender: F Record Searcher: RYLIE Luis : 1955 Requested By: RANDALL VIDAL Order Number: [id number] Reading MD: Jani Jason Measurements Intervals [place] Rate: 72 P: 72 CT: 166 QRS: -5 QRSD: 91 T: -87 QT: 424 QTc: 465 Interpretive Statements Sinus rhythm Anterior infarct, recent Minimal ST elevation, inferior leads Lateral leads are also involved Electronically Signed On 03-23-2025 13:54:19 PDT by Jani Jason Please click the below link to view image of tracing.
--- NOTE | 2025-03-22 13:19 | DVHPN2 ---
Progress Note Date Seen: Mar 22, 2025 Medical Necessity Reason Pt with a Central, PICC or Fol: No Subjective Patient reports: No new complaints Review of Systems: HEENT:Normal, CVS:Normal, RESPIRATORY:Normal, GI:Normal, :Normal, MSK:Normal, NEURO:Normal Objective vital signs Vital Sign Date Time Temp Pulse Resp B/P (MAP) Pulse Ox O2 Delivery O2 Flow Rate FiO2 03/22/25 12:00 77 03/22/25 12:00 98.0 19 126/54 (78) 97 98.0 03/22/25 12:00 Nasal Cannula* 2 28 Total Intake and Output 03/21/25 03/21/25 03/22/25 15:00 23:00 07:00 Intake Total 350 ml 480 ml 200 ml Output Total 625 ml 1800 ml Balance 350 ml -145 ml -1600 ml medications Current Medications Medications Dose Ordered Sig/Connie Route Start Time Stop Time Status Last Admin Dose Admin Sodium Chloride 10 ml Q8HR IV 03/20/25 22:00 03/22/25 08:26 10 ML Atorvastatin Calcium 80 mg HS PO 03/20/25 22:00 03/21/25 21:42 80 MG Nitroglycerin 0.4 mg Q5MINP PRN SL 03/20/25 20:30 Morphine Sulfate 2 mg Q30M PRN IV 03/20/25 20:30 03/21/25 22:39 2 MG Furosemide 40 mg DAILY PO 03/21/25 10:00 03/22/25 08:23 40 MG Carvedilol 3.125 mg BID PO 03/20/25 22:00 03/22/25 08:24 3.125 MG Aspirin 81 mg DAILY PO 03/21/25 10:00 03/22/25 08:25 81 MG Clopidogrel Bisulfate 75 mg DAILY PO 03/21/25 10:00 03/22/25 08:26 75 MG Hydralazine HCl 10 mg Q6HPRN PRN IV 03/21/25 00:30 03/21/25 00:30 10 MG Clonidine HCl 0.2 mg Q2HR PRN PO 03/21/25 00:30 Sacubitril/ Valsartan 2 tab BID PO 03/21/25 22:00 03/22/25 08:25 2 TAB Empaglifozin 10 mg DAILY PO 03/22/25 10:00 03/22/25 08:24 10 MG Acetaminophen 650 mg Q6HP PRN PO 03/22/25 07:00 03/22/25 10:12 650 MG Examination: GENERAL:Normal, HEENT:Normal, NECK:Normal, LUNGS:Normal, CVS:Normal, ABDOMEN:Normal, MSK:Normal, SKIN:Normal, NEURO:Normal, :Normal laboratory and microbiology Laboratory Tests 03/22/25 02:53 Test 03/22/25 02:53 Range/Units Serum Glucose 129 H 74-106 mg/dL Microbiology Date/Time Source Procedure Growth Status 03/20/25 21:33 Nose MRSA Screen - Final Complete Problem List/Assessment/Plan Problem List/Assessment/Plan * Acute myocardial infarction, status post coronary angiography with stenting of the left anterior descending artery. * Xipia-do-ycbfvlh systolic heart failure for which the patient will be placed on Lasix as well as Entresto. * Status post run of ventricular tachycardia. The patient will be placed on magnesium. * Chronic obstructive pulmonary disease. * Acute on chronic respiratory failure. * Morbid obesity. * Transaminitis. * History of transcatheter aortic valve replacement * acute resp failure Plan discussed with: Patient My Orders My Orders Orders - RANDALL VIDAL MD Procedure Category Date Status Time Chest Portable XY 03/22/25 Resulted 06:00 Cleanse Wound With ARANZA 03/21/25 In Process Mild Soap A 14:49 Clonidine Hcl Tablet PHA 03/22/25 Transmitted (Catapres Tablet) 13:30 Discontinue Rg ARANZA 03/22/25 In Process Catheter 13:14 Basic Metabolic Panel LAB 03/23/25 Verified 06:00 Complete Blood Count LAB 03/23/25 Verified 06:00 Magnesium LAB 03/23/25 Verified 05:00 * Mine Promotor CONS 03/22/25 Transmitted Consult Transfer Orders XFER 03/22/25 Transmitted 13:14 Dietary Evaluation Review Comments: 1) Ensure high protein BID 2) Refer Cyber Security Engineer for weight management Expected Outcomes/Goals: To meet >75% estimated needs Fu 3-5 days Critical Care Time (mins): 39 (critical care time 39 mins) Date of Service: Mar 22, 2025 Billing Provider: RANDALL VIDAL MD Common Visit Codes: [id number] CARE 30-74 MIN RANDALL VIDAL MD Mar 22, 2025 13:19
--- NOTE | 2025-03-22 16:36 | DVHPN2 ---
Consult Progress Note Subjective Other Systems: Patient reports improvement in chest pain, denies any chest pain today. Objective vital signs Vital Sign Date Time Temp Pulse Resp B/P (MAP) Pulse Ox O2 Delivery O2 Flow Rate FiO2 03/22/25 16:00 12 93 Nasal Cannula* 1 24 03/22/25 16:00 97.9 73 120/56 (77) 97.9 Total Intake and Output 03/21/25 03/21/25 03/22/25 15:00 23:00 07:00 Intake Total 350 ml 480 ml 200 ml Output Total 625 ml 1800 ml Balance 350 ml -145 ml -1600 ml medications Current Medications Medications Dose Ordered Sig/Connie Route Start Time Stop Time Status Last Admin Dose Admin Sodium Chloride 10 ml Q8HR IV 03/20/25 22:00 03/22/25 08:26 10 ML Atorvastatin Calcium 80 mg HS PO 03/20/25 22:00 03/21/25 21:42 80 MG Nitroglycerin 0.4 mg Q5MINP PRN SL 03/20/25 20:30 Morphine Sulfate 2 mg Q30M PRN IV 03/20/25 20:30 03/21/25 22:39 2 MG Furosemide 40 mg DAILY PO 03/21/25 10:00 03/22/25 08:23 40 MG Carvedilol 3.125 mg BID PO 03/20/25 22:00 03/22/25 08:24 3.125 MG Aspirin 81 mg DAILY PO 03/21/25 10:00 03/22/25 08:25 81 MG Clopidogrel Bisulfate 75 mg DAILY PO 03/21/25 10:00 03/22/25 08:26 75 MG Hydralazine HCl 10 mg Q6HPRN PRN IV 03/21/25 00:30 03/21/25 00:30 10 MG Sacubitril/ Valsartan 2 tab BID PO 03/21/25 22:00 03/22/25 08:25 2 TAB Empaglifozin 10 mg DAILY PO 03/22/25 10:00 03/22/25 08:24 10 MG Acetaminophen 650 mg Q6HP PRN PO 03/22/25 07:00 03/22/25 16:31 650 MG Clonidine HCl 0.1 mg Q6HP PRN PO 03/22/25 13:30 Examination: GENERAL:Normal, LUNGS:Normal, CVS:Normal, NEURO:Normal laboratory and microbiology Laboratory Tests 03/22/25 02:53 Test 03/22/25 02:53 Range/Units Serum Glucose 129 H 74-106 mg/dL Problem List/Assessment/Plan Problem List/Assessment/Plan ST-elevation myocardial infarction status post PTCA X 1 JENNIFER to LAD Acute on chronic decompensated HFrEF, NYHA class III (EF 25% on ventriculography) Ventricular tachycardia Aortic valve stenosis status post TAVR Hypertriglyceridemia COPD Emphysema Transaminitis Obesity Continue with the following plan/recommendations (Dr. Jason): Case discussed with . The patient came in with ST-elevation myocardial infarction in which she underwent a coronary angiogram with left heart catheterization in which there was a successful PTCA, stenting and thrombectomy of the left anterior descending artery. Ventriculography reveals an EF of approximately 25% with anterior apical and inferior apical akinesis. Continue with dual antiplatelet therapy and lipid-lowering agent. Continue guideline directed medical therapy for CHF as tolerated. Continue Entresto dose for tighter BP control. Add MRA (spironolactone) with stable potassium. We will initiate a social service consult for initiation of LifeVest prior to discharge. Continue with close cardiac surveillance. Thank you for allowing us to care for this patient. Please call with any questions or concerns. Critical care time spent: 44 minutes. This medical document was created using an electronic medical record system with voice recognition software and computerized dictation system. Although this document has been carefully reviewed, there might still be some phonetic and typographical errors. Occasional wrong-word or ``sound-alike substitutions may have occurred due to the inherent limitations of voice recognition software. These areas are purely typographical due to imperfections of the software programs and do not reflect any compromise in the patient's medical care. Please read the chart carefully and recognize, using context, where these substitutions have occurred. Plan discussed with: Patient Dietary Evaluation Review Comments: 1) Ensure high protein BID 2) Refer Nuclear Power Reactor Operator for weight management Expected Outcomes/Goals: To meet >75% estimated needs Fu 3-5 days Date of Service: Mar 22, 2025 Billing Provider: SHAKILA CELIS Common Visit Codes: [id number] CARE 30-74 MIN SHAKILA CELIS Mar 22, 2025 16:36
[2025-03-23] VITALS (92 sets, daily range): BP systolic 11–158; BP diastolic 25–82; PULSE 65–143; RESP 11–37; TEMP 97.8–98.4; O2SAT 91–98
[2025-03-23] MEDS ORDERED: TEMAZEPAM 15 MG CAP PO ONE (01:00)
[2025-03-23 04:12] LABS: Anion Gap 8 (5-15); Calcium 9.2 mg/dL (8.7-10.4); Carbon Dioxide 27 mmol/L (20-31); Chloride 104 mmol/L (98-107); Potassium 4.3 mmol/L (3.5-5.1); Sodium 139 mmol/L (136-145)
[2025-03-23 04:14] LABS: Hematocrit 39.6 % (36.0-46.0); Hemoglobin 13.0 g/dL (12.2-16.2); Mean Corpuscular Hemoglobin 29.0 pg (28.0-32.0); Mean Corpuscular Volume 88.2 fL (80.0-100.0); Nucleated Red Blood Cells % 0.1 %
[2025-03-23 04:17] LABS: Glucose 100 mg/dL (74-106)
[2025-03-23 04:18] LABS: BUN/Creatinine Ratio 25.0 (10.0-20.0); Blood Urea Nitrogen 23 mg/dL (9-23); Magnesium 2.4 mg/dL (1.6-2.6)
[2025-03-23] MEDS: KETOROLAC TROMETH 30 MG/ML 1ML VIAL IV ONE (11:17)
--- NOTE | 2025-03-23 12:54 | ECG ---
[facility] Test Date: 2025-03-23 Test Time: 10:28:39 Pat Name: RENETTA COLON Department: ICU Room: [address] [place] [address] A Gender: F Graduate Internship: Re : 1955 Requested By: MARGARET JASON Order Number: [id number] Reading MD: Margaret Jason Measurements Intervals [place] Rate: 73 P: 39 PA: 166 QRS: -2 QRSD: 94 T: -87 QT: 415 QTc: 458 Interpretive Statements Sinus rhythm Anterior infarct, acute (LAD) ST elevation, consider inferior injury Lateral leads are also involved Electronically Signed On 03-23-2025 13:55:46 PDT by Margaret Jason Please click the below link to view image of tracing.
--- NOTE | 2025-03-23 13:06 | DVHPN2 ---
Progress Note Date Seen: Mar 23, 2025 Medical Necessity Reason Pt with a Central, PICC or Fol: No Subjective Patient reports: No new complaints Review of Systems: HEENT:Normal, CVS:Normal, RESPIRATORY:Normal, GI:Normal, :Normal, MSK:Normal, NEURO:Normal Objective vital signs Vital Sign Date Time Temp Pulse Resp B/P (MAP) Pulse Ox O2 Delivery O2 Flow Rate FiO2 03/23/25 12:00 72 03/23/25 12:00 19 95 Nasal Cannula* 2 03/23/25 06:45 100/69 (79) 03/23/25 04:00 98.3 98.3 Total Intake and Output 03/22/25 03/22/25 03/23/25 15:00 23:00 07:00 Intake Total 780 ml 240 ml Output Total 2800 ml Balance -2020 ml 240 ml medications Current Medications Medications Dose Ordered Sig/Connie Route Start Time Stop Time Status Last Admin Dose Admin Sodium Chloride 10 ml Q8HR IV 03/20/25 22:00 03/23/25 06:12 10 ML Atorvastatin Calcium 80 mg HS PO 03/20/25 22:00 03/22/25 21:51 80 MG Nitroglycerin 0.4 mg Q5MINP PRN SL 03/20/25 20:30 Morphine Sulfate 2 mg Q30M PRN IV 03/20/25 20:30 03/21/25 22:39 2 MG Furosemide 40 mg DAILY PO 03/21/25 10:00 03/22/25 08:23 40 MG Carvedilol 3.125 mg BID PO 03/20/25 22:00 03/22/25 21:51 3.125 MG Aspirin 81 mg DAILY PO 03/21/25 10:00 03/23/25 10:59 81 MG Clopidogrel Bisulfate 75 mg DAILY PO 03/21/25 10:00 03/23/25 11:00 75 MG Hydralazine HCl 10 mg Q6HPRN PRN IV 03/21/25 00:30 03/21/25 00:30 10 MG Sacubitril/ Valsartan 2 tab BID PO 03/21/25 22:00 03/22/25 21:56 2 TAB Empaglifozin 10 mg DAILY PO 03/22/25 10:00 03/22/25 08:24 10 MG Acetaminophen 650 mg Q6HP PRN PO 03/22/25 07:00 03/22/25 23:16 650 MG Clonidine HCl 0.1 mg Q6HP PRN PO 03/22/25 13:30 Examination: GENERAL:Normal, HEENT:Normal, NECK:Normal, LUNGS:Normal, LUNGS:Abnormal (ON OXYGEN), CVS:Normal, ABDOMEN:Normal, MSK:Normal, SKIN:Normal, NEURO:Normal, :Normal laboratory and microbiology Laboratory Tests 03/23/25 02:56 Test 03/23/25 02:56 Range/Units Serum Glucose 100 74-106 mg/dL Microbiology Date/Time Source Procedure Growth Status 03/20/25 21:33 Nose MRSA Screen - Final Complete Problem List/Assessment/Plan Problem List/Assessment/Plan * Acute myocardial infarction, status post coronary angiography with stenting of the left anterior descending artery. * [id number]-vi-[id number] systolic heart failure for which the patient will be placed on Lasix as well as Entresto. * Status post run of ventricular tachycardia. The patient will be placed on magnesium. * Chronic obstructive pulmonary disease. * Acute on chronic respiratory failure. * Morbid obesity. * Transaminitis. * History of transcatheter aortic valve replacement * hypotension: decrease entresto dose Plan discussed with: Patient My Orders My Orders Orders - RANDALL VIDAL MD Procedure Category Date Status Time Clonidine Hcl Tablet PHA 03/22/25 In Process (Catapres Tablet) 13:30 Discontinue Rg ARANZA 03/22/25 In Process Catheter 13:14 * Fighting Vehicle [employer] CONS 03/22/25 Transmitted Consult Transfer Orders XFER 03/22/25 Transmitted 13:14 Sacubitril-Valsartan PHA 03/23/25 Verified (Entresto 24-26 Mg 22:00 Basic Metabolic Panel LAB 03/24/25 Verified 06:00 Complete Blood Count LAB 03/24/25 Verified 06:00 Chest Portable XY 03/24/25 Verified 06:00 Dietary Evaluation Review Comments: 1) Ensure high protein BID 2) Refer [employer] for weight management Expected Outcomes/Goals: To meet >75% estimated needs Fu 3-5 days Critical Care Time (mins): 38 (critical care time 38 mins) Date of Service: Mar 23, 2025 Billing Provider: RANDALL VIDAL MD Common Visit Codes: [id number] CARE 30-74 MIN RANDALL VIDAL MD Mar 23, 2025 13:06
--- NOTE | 2025-03-23 14:11 | DVHPN2 ---
Consult Progress Note Subjective Other Systems: Patient started experiencing chest pain again this morning. States that the pain feels dull at time of assessment. Objective vital signs Vital Sign Date Time Temp Pulse Resp B/P (MAP) Pulse Ox O2 Delivery O2 Flow Rate FiO2 03/23/25 13:00 78 21 116/61 (79) 97 03/23/25 12:00 97.8 97.8 03/23/25 12:00 Nasal Cannula* 2 28 Total Intake and Output 03/22/25 03/22/25 03/23/25 15:00 23:00 07:00 Intake Total 780 ml 240 ml Output Total 2800 ml Balance -2020 ml 240 ml medications Current Medications Medications Dose Ordered Sig/Connie Route Start Time Stop Time Status Last Admin Dose Admin Sodium Chloride 10 ml Q8HR IV 03/20/25 22:00 03/23/25 06:12 10 ML Atorvastatin Calcium 80 mg HS PO 03/20/25 22:00 03/22/25 21:51 80 MG Nitroglycerin 0.4 mg Q5MINP PRN SL 03/20/25 20:30 Morphine Sulfate 2 mg Q30M PRN IV 03/20/25 20:30 03/21/25 22:39 2 MG Furosemide 40 mg DAILY PO 03/21/25 10:00 03/22/25 08:23 40 MG Carvedilol 3.125 mg BID PO 03/20/25 22:00 03/22/25 21:51 3.125 MG Aspirin 81 mg DAILY PO 03/21/25 10:00 03/23/25 10:59 81 MG Clopidogrel Bisulfate 75 mg DAILY PO 03/21/25 10:00 03/23/25 11:00 75 MG Hydralazine HCl 10 mg Q6HPRN PRN IV 03/21/25 00:30 03/21/25 00:30 10 MG Empaglifozin 10 mg DAILY PO 03/22/25 10:00 03/22/25 08:24 10 MG Acetaminophen 650 mg Q6HP PRN PO 03/22/25 07:00 03/22/25 23:16 650 MG Sacubitril/ Valsartan 0.5 tab BID PO 03/23/25 22:00 Examination: GENERAL:Normal, LUNGS:Normal, CVS:Abnormal (Normal sinus rhythm with ST segment changes to anterior leads), NEURO:Normal laboratory and microbiology Laboratory Tests 03/23/25 02:56 Test 03/23/25 02:56 Range/Units Serum Glucose 100 74-106 mg/dL Problem List/Assessment/Plan Problem List/Assessment/Plan ST-elevation myocardial infarction status post PTCA X 1 JENNIFER to LAD Acute on chronic decompensated HFrEF, NYHA class III (EF 25% on ventriculography) ?Acute pericarditis Ventricular tachycardia Aortic valve stenosis status post TAVR Hypertriglyceridemia COPD Emphysema Transaminitis Obesity Continue with the following plan/recommendations (Dr. Jason): Case discussed with . The patient came in with ST-elevation myocardial infarction in which she underwent a coronary angiogram with left heart catheterization in which there was a successful PTCA, stenting and thrombectomy of the left anterior descending artery. Ventriculography reveals an EF of approximately 25% with anterior apical and inferior apical akinesis. Continue with dual antiplatelet therapy and lipid-lowering agent. Continue guideline directed medical therapy for CHF as tolerated. Decreased Entresto dose for given hypotension. Add MRA (spironolactone) with stable potassium if tolerated by blood pressure. Social service consult for initiation of LifeVest prior to discharge. The patient continues to have chest pain, ESR and CRP levels elevated at this time. We will initiate colchicine and naproxen. Continue with close cardiac surveillance. Thank you for allowing us to care for this patient. Please call with any questions or concerns. Critical care time spent: 38 minutes. This medical document was created using an electronic medical record system with voice recognition software and computerized dictation system. Although this document has been carefully reviewed, there might still be some phonetic and typographical errors. Occasional wrong-word or ``sound-alike substitutions may have occurred due to the inherent limitations of voice recognition software. These areas are purely typographical due to imperfections of the software programs and do not reflect any compromise in the patient's medical care. Please read the chart carefully and recognize, using context, where these substitutions have occurred. Plan discussed with: Patient Dietary Evaluation Review Comments: 1) Ensure high protein BID 2) Refer [employer] Teacher for weight management Expected Outcomes/Goals: To meet >75% estimated needs Fu 3-5 days Date of Service: Mar 23, 2025 Billing Provider: SHAKILA CELIS Common Visit Codes: [id number] CARE 30-74 MIN SHAKILA CELIS Mar 23, 2025 14:11
[2025-03-23] MEDS: SACUBITRIL-VALSARTAN 24mg/26mg TAB PO SCH (15:15)
[2025-03-23] MEDS: NAPROXEN 500 MG TAB PO PRN (19:51)
[2025-03-23] MEDS: COLCHICINE 0.6 MG CAP PO SCH (21:44)
[2025-03-23] MEDS ORDERED: SACUBITRIL-VALSARTAN 24mg/26mg TAB PO SCH (22:00)
[2025-03-24] VITALS (10 sets, daily range): BP systolic 107–143; BP diastolic 44–108; PULSE 66–92; RESP 16–20; TEMP 97.4–98.5; O2SAT 94–98
[2025-03-24] MEDS: PANTOPRAZOLE 40 MG TAB PO SCH (05:59)
[2025-03-24 06:05] LABS: Chloride 104 mmol/L (98-107); Potassium 4.8 mmol/L (3.5-5.1); Sodium 136 mmol/L (136-145)
[2025-03-24 06:06] LABS: Anion Gap 7 (5-15); Carbon Dioxide 25 mmol/L (20-31)
[2025-03-24 06:07] LABS: Calcium 9.1 mg/dL (8.7-10.4)
[2025-03-24 06:09] LABS: Hematocrit 39.5 % (36.0-46.0); Hemoglobin 12.9 g/dL (12.2-16.2); Mean Corpuscular Hemoglobin 28.8 pg (28.0-32.0); Mean Corpuscular Volume 88.7 fL (80.0-100.0); Nucleated Red Blood Cells % 0.2 %
[2025-03-24 06:12] LABS: BUN/Creatinine Ratio 29.2 (10.0-20.0)
[2025-03-24 06:15] LABS: Blood Urea Nitrogen 26 mg/dL (9-23); Glucose 124 mg/dL (74-106)
--- NOTE | 2025-03-24 10:08 | DVHDS2 ---
Discharge Summary Date of Admission Mar 20, 2025 at 20:27 Date of Discharge: Mar 25, 2025 Labs/Diagnostic Data: Laboratory Results Test 03/24/25 05:39 03/23/25 02:56 03/22/25 02:53 03/21/25 13:30 White Blood Count 7.4 10^3/uL (4.4-10.8) Red Blood Count 4.46 10^6/uL (4.0-5.20) Hemoglobin 12.9 g/dL (12.2-16.2) Hematocrit 39.5 % (36.0-46.0) Mean Corpuscular Volume 88.7 fL (80.0-100.0) Mean Corpuscular Hemoglobin 28.8 pg (28.0-32.0) Mean Corpuscular Hemoglobin Concent 32.5 g/dL (32.0-36.0) Red Cell Distribution Width 14.5 % (11.8-14.3) Platelet Count 197 10^3/uL (140-450) Mean Platelet Volume 9.4 fL (6.9-10.8) Neutrophils (%) (Auto) 65.7 % (37.0-80.0) Lymphocytes (%) (Auto) 18.0 % (10.0-50.0) Monocytes (%) (Auto) 11.4 % (0.0-12.0) Eosinophils (%) (Auto) 4.1 % (0.0-7.0) Basophils (%) (Auto) 0.8 % (0.0-2.0) Neutrophils # (Auto) 4.9 10 ^3/uL (1.6-8.6) Lymphocytes # (Auto) 1.3 10 ^3/uL (0.4-5.4) Monocytes # (Auto) 0.8 10 ^3/uL (0-1.3) Eosinophils # (Auto) 0.3 10 ^3/uL (0-0.8) Basophils # (Auto) 0.1 10 ^3/uL (0-0.2) Nucleated Red Blood Cells 0.2 % Sodium Level 136 mmol/L (136-145) Potassium Level 4.8 mmol/L (3.5-5.1) Chloride Level 104 mmol/L (98-107) Carbon Dioxide Level 25 mmol/L (20-31) Anion Gap 7 (5-15) Blood Urea Nitrogen 26 mg/dL (9-23) Creatinine 0.89 mg/dL (0.550-1.02) Glomerular Filtration Rate Calc 70 mL/min (>90) BUN/Creatinine Ratio 29.2 (10.0-20.0) Serum Glucose 124 mg/dL (74-106) Calcium Level 9.1 mg/dL (8.7-10.4) Erythrocyte Sedimentation Rate 21 mm/hr (0-20) Magnesium Level 2.4 mg/dL (1.6-2.6) C-Reactive Protein High Sensitivity 5.20 mg/dL (<1.0) Total Bilirubin 0.6 mg/dL (0.2-1.0) Aspartate Amino Transferase (AST) 286 U/L (13-40) Alanine Aminotransferase (ALT) 58 U/L (7-40) Alkaline Phosphatase 75 U/L (46-116) Total Protein 5.8 g/dL (5.7-8.2) Albumin 3.6 g/dL (3.2-4.8) Urine Color Yellow (Yellow) Urine Clarity Clear (Clear) Urine pH 6.0 (5.0-9.0) Urine Specific [place] 1.034 (1.001-1.035) Urine Protein Trace (Negative) Urine Ketones Negative (Negative) Urine Blood 2+ /uL (Negative) Urine Nitrite Negative (Negative) Urine Bilirubin Negative (Negative) Urine Urobilinogen Normal mg/dL (Negative) Urine Leukocyte Esterase Negative /uL (Negative) Urine RBC 150 /hpf (0 - 4) Urine Microscopic WBC 4 /HPF (0-5) Urine Squamous Epithelial Cells Few /hpf (<5) Urine Bacteria None seen /hpf (None Seen) Urine Glucose Normal mg/dL (Normal) Test 03/21/25 12:49 03/21/25 01:35 03/20/25 18:46 Troponin I High Sensitivity > 34108 ng/L (</=34) B-Type Natriuretic Peptide 93.82 pg/mL (0-100) Prothrombin Time 10.4 sec (9.3-11.8) Prothrombin Time INR 0.98 (0.9-1.15) Activated Partial Thromboplast Time 26.8 SEC (24.5-34.5) Hemoglobin A1c 5.5 % A1C (<5.7) Triglycerides Level 159 mg/dL (< 150) Cholesterol Level 160 mg/dL (< 200) LDL Cholesterol 87 mg/dL (< 100) HDL Cholesterol 52 mg/dL (40-59) Thyroid Stimulating Hormone (TSH) 1.51 uIU/mL (0.55-4.78) Other Laboratory Tests 03/24/25 05:39 Brief Hx & Hospital Course: see dictated note Condition at Discharge: Fair Final Diagnosis/Problems List cad Discharge Disposition: Home Discharge Instruct/Medications Diet: Cardiac 2g Na,low cholest Activity: No Restrictions, As Tolerated Follow Up/Referral: fu with pcp/cardiology Medications: script to pharmacy Scheduled Fluticasone Furoate-Vilanterol (Breo Ellipta 200-25 Mcg/INH), 1 PUFF INH DAILY, (Reported) Potassium Chloride (Potassium Chloride ER), 1 TAB PO DAILY, (Reported) Triamcinolone Acetonide (Triamcinolone Acetonide), 1 APPLIC TOP DAILY, (Reported) Discharge Statement: "Patient was advised to return to the ER or call 911 if any headaches, dizziness, shortness of breath, chest pain, abdominal pain, bleeding, fevers, or worsening of medical condition. Patient was counseled about treatment plan, medications, possible side effects, patientverbalized understanding. All questions were answered to the best of my ability. This discharge took greater then 30 minutes in planning, reviewing documentation, counseling the patient, and discussing with other team members." ASSESSMENT ASSESSMENT Assessment cad Date of Service: Mar 24, 2025 Billing Provider: RANDALL VIDAL MD Common Visit Codes: [id number] DISCH DAY >30min RANDALL VIDAL MD Mar 24, 2025 10:08
[2025-03-24] MEDS ORDERED: CLOP75TA28 PO (10:13)
[2025-03-24] MEDS ORDERED: SACU1TAB PO (10:13)
[2025-03-24] MEDS ORDERED: CARV-214 PO (10:13)
[2025-03-24] MEDS ORDERED: COLC1CAP PO (10:13)
[2025-03-24] MEDS ORDERED: ASPI-498 PO (10:13)
[2025-03-24] MEDS ORDERED: ATOR80TA PO (10:13)
[2025-03-24] MEDS ORDERED: EMPA1TAB PO (10:13)
[2025-03-24] MEDS ORDERED: FURO1TAB31 PO (10:13)
[2025-03-24] MEDS ORDERED: PANT40TA2 PO (10:13)
--- NOTE | 2025-03-24 10:43 | DVHDS ---
DATE OF DISCHARGE: 03/24/2025 HISTORY OF PRESENT ILLNESS: The patient is a 69-year-old lady who is admitted with shortness of breath and chest pain and has a history of COPD, chronic respiratory failure, previous TAVR, and chronic kidney disease. HOSPITAL COURSE: The patient had acute myocardial infarction. The patient was seen in cardiology consult by Dr. Jason. The patient underwent coronary angiography with stenting of the LAD. The patient was admitted to the Intensive Care Unit. She was in congestive heart failure. Echocardiogram done, showed ejection fraction of 40% with dilated LV. The patient will now be discharged. Her TSH was 1.5, LDL was 87. The patient will be discharged to be on aspirin 81 mg daily, Plavix 75 mg daily, Coreg 3.125 mg p.o. b.i.d., Jardiance 10 mg daily, colchicine 0.6 mg daily, Lipitor 80 mg at bedtime, Lasix 40 mg daily, Protonix 40 mg daily, and Entresto 24/, half a tablet b.i.d. 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 FINAL DIAGNOSES: * Acute myocardial infarction status post angiography and stenting. * Acute on chronic systolic heart failure. * Status post V-tach. * COPD. * Acute on chronic respiratory failure. * Morbid obesity. * Transaminitis. * History of TAVR. * CKD stage 3. Time spent in discharge planning and review of plan with the patient and nursing was 39 minutes. MD DEVON Ricks/KAE TID: [id number] RECEIPT: [id number]
--- NOTE | 2025-03-24 11:07 | DVH ---
EXAM: XY CHEST PORTABLE Indication: chf Technique: Single frontal view of the chest was obtained Comparison: XY CHEST PORTABLE on DOS: 03/22/25, XY CHEST PORTABLE on DOS: 03/20/25 FINDINGS: Lines and Tubes: None Lungs: No focal consolidation. Pleura: No effusion. No pneumothorax. Cardiomediastinal contours: Cardiomegaly. Bones: No acute osseous abnormality. IMPRESSION: Cardiomegaly.No acute cardiopulmonary disease.
--- NOTE | 2025-03-24 17:42 | DVHPN2 ---
Consult Progress Note Subjective Patient reports: Feels better Other Systems: Patient denies any chest pain at time of assessment. States that she feels better today Objective vital signs Vital Sign Date Time Temp Pulse Resp B/P (MAP) Pulse Ox O2 Delivery O2 Flow Rate FiO2 03/24/25 13:00 98.2 86 17 115/65 (82) 97 98.2 03/24/25 08:00 Room Air* 0 21 Total Intake and Output 03/23/25 03/23/25 03/24/25 15:00 23:00 07:00 Intake Total 1440 ml 620 ml Balance 1440 ml 620 ml medications Current Medications Medications Dose Ordered Sig/Connie Route Start Time Stop Time Status Last Admin Dose Admin Sodium Chloride 10 ml Q8HR IV 03/20/25 22:00 03/24/25 14:00 10 ML Atorvastatin Calcium 80 mg HS PO 03/20/25 22:00 03/23/25 21:44 80 MG Nitroglycerin 0.4 mg Q5MINP PRN SL 03/20/25 20:30 Morphine Sulfate 2 mg Q30M PRN IV 03/20/25 20:30 03/21/25 22:39 2 MG Furosemide 40 mg DAILY PO 03/21/25 10:00 03/24/25 10:15 40 MG Carvedilol 3.125 mg BID PO 03/20/25 22:00 03/24/25 10:18 3.125 MG Aspirin 81 mg DAILY PO 03/21/25 10:00 03/24/25 10:15 81 MG Clopidogrel Bisulfate 75 mg DAILY PO 03/21/25 10:00 03/24/25 10:17 75 MG Hydralazine HCl 10 mg Q6HPRN PRN IV 03/21/25 00:30 03/21/25 00:30 10 MG Empaglifozin 10 mg DAILY PO 03/22/25 10:00 03/24/25 10:17 10 MG Acetaminophen 650 mg Q6HP PRN PO 03/22/25 07:00 03/22/25 23:16 650 MG Sacubitril/ Valsartan 0.5 tab BID PO 03/23/25 15:15 03/24/25 10:16 0.5 TAB Naproxen 250 mg Q8HP PRN PO 03/23/25 15:15 03/24/25 10:20 250 MG Pantoprazole Sodium 40 mg DAILY@0600 PO 03/24/25 06:00 03/24/25 05:59 40 MG Colchicine 0.6 mg Q12HR PO 03/23/25 22:00 03/24/25 10:16 0.6 MG Examination: GENERAL:Normal, LUNGS:Normal, CVS:Normal, NEURO:Normal laboratory and microbiology Laboratory Tests 03/24/25 05:39 Test 03/24/25 05:39 Range/Units Serum Glucose 124 H 74-106 mg/dL Problem List/Assessment/Plan Problem List/Assessment/Plan ST-elevation myocardial infarction status post PTCA X 1 JENNIFER to LAD Acute on chronic decompensated HFrEF, NYHA class III (EF 25% on ventriculography) ?Acute pericarditis Ventricular tachycardia Aortic valve stenosis status post TAVR Hypertriglyceridemia COPD Emphysema Transaminitis Obesity Continue with the following plan/recommendations (Dr. Jason): Case discussed with . The patient came in with ST-elevation myocardial infarction in which she underwent a coronary angiogram with left heart catheterization in which there was a successful PTCA, stenting and thrombectomy of the left anterior descending artery. Ventriculography reveals an EF of approximately 25% with anterior apical and inferior apical akinesis. Continue with dual antiplatelet therapy and lipid-lowering agent. Continue guideline directed medical therapy for CHF as tolerated. Decreased Entresto dose for given hypotension. Add MRA (spironolactone) with stable potassium if tolerated by blood pressure. Social service consult for initiation of LifeVest prior to discharge. Continue with colchicine and naproxen. Continue with close cardiac surveillance. Thank you for allowing us to care for this patient. Please call with any questions or concerns. This medical document was created using an electronic medical record system with voice recognition software and computerized dictation system. Although this document has been carefully reviewed, there might still be some phonetic and typographical errors. Occasional wrong-word or ``sound-alike substitutions may have occurred due to the inherent limitations of voice recognition software. These areas are purely typographical due to imperfections of the software programs and do not reflect any compromise in the patient's medical care. Please read the chart carefully and recognize, using context, where these substitutions have occurred. Plan discussed with: Patient Dietary Evaluation Review Comments: 1) Ensure high protein BID 2) Refer [employer] for weight management Expected Outcomes/Goals: To meet >75% estimated needs Fu 3-5 days Date of Service: Mar 24, 2025 Billing Provider: SHAKILA CELIS Common Visit Codes: [id number] INP/OBS CARE(HIGH) SHAKILA CELIS Mar 24, 2025 17:42
[2025-03-25 01:00] VITALS: BP 112/74; PULSE 77; RESP 19; TEMP 97.7; O2SAT 97
[2025-03-25 05:00] VITALS: BP 110/63; PULSE 75; RESP 20; TEMP 98.2; O2SAT 96
[2025-03-25 08:00] VITALS: RESP 16
[2025-03-25 08:53] VITALS: BP 108/67; PULSE 79; RESP 18; TEMP 98.2; O2SAT 95
[2025-03-25 10:45] VITALS: BP 108/53; PULSE 74; TEMP 36.8
--- NOTE | 2025-03-25 16:45 | DVHPN2 ---
Subjective Doing well No complaints Going home today Changes from previous H/P or p: No Changes Objective Vitals Vital Signs Date Time Temp Pulse Resp B/P (MAP) Pulse Ox O2 Delivery O2 Flow Rate FiO2 03/25/25 11:09 79 108/67 03/25/25 10:45 36.8 03/25/25 08:53 18 95 03/25/25 08:00 Room Air* 0 21 Intake/Output Intake and Output 03/25/25 07:00 Intake Total 1110 ml Balance 1110 ml Intake Oral 1110 ml # Voids 5 General Appearance: Alert, Oriented X3, Cooperative, No acute distress Lungs: Clear to auscultation, Normal air movement Cardiovascular: Regular rate, Normal S1, Normal S2 Abdomen: Normal bowel sounds, Soft, No tenderness Extremities: No edema Laboratory Results Laboratory Tests 03/24/25 05:39 Urinalysis Test 03/21/25 13:30 Urine Color Yellow (Yellow) Urine Clarity Clear (Clear) Urine pH 6.0 (5.0-9.0) Urine Specific [place] 1.034 (1.001-1.035) Urine Protein Trace (Negative) H Urine Ketones Negative (Negative) Urine Blood 2+ /uL (Negative) H Urine Nitrite Negative (Negative) Urine Bilirubin Negative (Negative) Urine Urobilinogen Normal mg/dL (Negative) Urine Leukocyte Esterase Negative /uL (Negative) Urine RBC 150 /hpf (0 - 4) Urine Microscopic WBC 4 /HPF (0-5) Urine Squamous Epithelial Cells Few /hpf (<5) Urine Bacteria None seen /hpf (None Seen) Urine Glucose Normal mg/dL (Normal) Microbiology Microbiology Date/Time Source Procedure Growth Status 03/20/25 21:33 Nose MRSA Screen - Final Complete Assessment/Plan Assessment/Plan Acute DC CAD s/p angioplasty and stenting Acute on chronic CHF COPD Obesity CKD stage 3 PLAN: DC home Meds sent to pharmacy [facility] Plavix Lipitor Coreg Jardiance Lasix Entresto Plan discussed with: Patient Date of Service: Mar 25, 2025 Billing Provider: PALOMO PINEDO MD Common Visit Codes: [id number] INP/OBS CARE(HIGH) PALOMO PINEDO MD Mar 25, 2025 16:45
== END 2025-03-25 11:30 | disposition home or self-care (01) | DRG 321 ==
LOC: ER 18:25 → EDBD 18:25 → OVERFLOW 20:27 → ICU WEST 21:12 → TELE-CENTR 03-24 01:28
PROVIDERS: ADMIT Internal Medicine Geriatric Medicine; ATTEND Internal Medicine Geriatric Medicine
PROC: 027034Z Dilation of Coronary Artery, One Artery with Drug-eluting Intraluminal Device, Percutaneous Approach (ICD-10-PCS; principal; 2025-03-20)
PROC: 02703ZZ Dilation of Coronary Artery, One Artery, Percutaneous Approach (ICD-10-PCS; 2025-03-20)
PROC: 02C03ZZ Extirpation of Matter from Coronary Artery, One Artery, Percutaneous Approach (ICD-10-PCS; 2025-03-20)
PROC: 4A023N7 Measurement of Cardiac Sampling and Pressure, Left Heart, Percutaneous Approach (ICD-10-PCS; 2025-03-20)
PROC: B211YZZ Fluoroscopy of Multiple Coronary Arteries using Other Contrast (ICD-10-PCS; 2025-03-20)
PROC: B215YZZ Fluoroscopy of Left Heart using Other Contrast (ICD-10-PCS; 2025-03-20)
PROC: 3E03317 Introduction of Other Thrombolytic into Peripheral Vein, Percutaneous Approach (ICD-10-PCS; 2025-03-20)
DX: I21.02 ST elevation (STEMI) myocardial infarction involving left anterior descending coronary artery (principal); I50.23 Acute on chronic systolic (congestive) heart failure; J96.20 Acute and chronic respiratory failure, unspecified whether with hypoxia or hypercapnia; I47.20 Ventricular tachycardia, unspecified; Z68.43 Body mass index [BMI] 50.0-59.9, adult; J44.89 Other specified chronic obstructive pulmonary disease; J43.9 Emphysema, unspecified; E66.01 Morbid (severe) obesity due to excess calories; N18.30 Chronic kidney disease, stage 3 unspecified; I25.10 Atherosclerotic heart disease of native coronary artery without angina pectoris; R74.01 Elevation of levels of liver transaminase levels; E78.1 Pure hyperglyceridemia; Z95.2 Presence of prosthetic heart valve; Z79.899 Other long term (current) drug therapy; Z79.84 Long term (current) use of oral hypoglycemic drugs; Z79.82 Long term (current) use of aspirin; Z79.02 Long term (current) use of antithrombotics/antiplatelets
CPT/HCPCS: 36415; 71045; 80048; 80053; 80061; 81001; 83036; 83735; 83880; 84443; 84484; 85025; 85610; 85652; 85730; 86141; 86850; 86900; 86901; 87081; 92941; 92973; 93005; 93306; 93458; 96374; 96375; 97163; 99152; 99291; G0378; J1885; J2250; Q9967